=== PATIENT | female | born 1985 | race Caucasian/White ===

== ENCOUNTER 2018-05-13 15:38 | Emergency (ER) | payer OTHER ==
[2018-05-13] MEDS ORDERED: CEFOXITIN 1 GM/D5W RTU 1 GM/50 ML RTUPB IV ONE (15:59)
--- NOTE | 2018-05-13 16:00 | ER Document Report ---
ED Medical Screen (RME) - General Chief Complaint: Cat Bite Stated Complaint: CAT BITE Time Seen by Provider: 05/13/18 15:50 TRAVEL OUTSIDE OF THE [place] IN LAST 30 DAYS: No - HPI Notes: 05/13/18 15:59cat bite to the right hand greater than 24 hours - Related Data Allergies/Adverse Reactions: No Known Allergies Allergy (Unverified 07/06/15 13:41) Past Medical History - Social History Chew tobacco use (# tins/day): No Frequency of alcohol use: None Drug Abuse: None - Past Medical History Cardiac Medical History: Denies: Hx Coronary Artery Disease, Hx Heart Attack, Hx Hypertension Pulmonary Medical History: Denies: Hx Asthma, Hx Bronchitis, Hx COPD, Hx Pneumonia Neurological Medical History: Denies: Hx Cerebrovascular Accident, Hx Seizures Renal/ Medical History: Denies: Hx Peritoneal Dialysis Musculoskeltal Medical History: Denies Hx Arthritis - Immunizations Hx Diphtheria, Pertussis, Tetanus Vaccination: No Review of Systems - Review of Systems Constitutional: Other - cat bite Physical Exam - Vital signs Vitals: Temp Pulse Resp BP Pulse Ox 97.9 F 103 H 16 141/82 H 99 05/13/18 15:42 05/13/18 15:42 05/13/18 15:42 05/13/18 15:42 05/13/18 15:42 - Respiratory Respiratory status: No respiratory distress Chest status: Nontender Breath sounds: Normal Chest palpation: Normal - Extremities General upper extremity: Other - Decreased range of motion of the right and due to pain. Patient does have induration on the dorsum at the base of the third and fourth digit Course - Vital Signs Vital signs: Temp Pulse Resp BP Pulse Ox 97.9 F 103 H 16 141/82 H 99 05/13/18 15:42 05/13/18 15:42 05/13/18 15:42 05/13/18 15:42 05/13/18 15:42
--- NOTE | 2018-05-13 16:52 | RADIOLOGY REPORT (SQ) ---
EXAM DESCRIPTION: HAND RIGHT 3 VIEWS COMPLETED DATE/TIME: 05/13/2018 4:25 pm REASON FOR STUDY: cat bite mid by CT yesterday, diffuse hand soft tissue swelling over the thenar e minence COMPARISON: None. EXAM PARAMETERS: NUMBER OF VIEWS: Three views. TECHNIQUE: AP, lateral and oblique radiographic images acquired of the right hand. LIMITATIONS: None. FINDINGS: MINERALIZATION: Normal. BONES: No acute fracture or dislocation. No worrisome bone lesions. JOINTS: No effusions. SOFT TISSUES: Diffuse thenar eminence soft tissue swelling. No foreign body. No soft tissue gas. OTHER: No other significant finding. IMPRESSION: Diffuse seen are eminence soft tissue swelling. No soft tissue gas or radiopaque foreig n body. No bony puncture wound from cat bite TECHNICAL DOCUMENTATION: JOB ID: [id number] [employer]- All Rights Reserved Reading location - IP/workstation name: [email or web address]
[2018-05-13] MEDS ORDERED: NORMAL SALINE 1000 ML 1,000 ML IV ONE (16:55)
[2018-05-13 16:57] LABS: ABSOLUTE BASOPHILS # (AUTO) 0.1 10^3/uL (0.0-0.2); ABSOLUTE EOSINOPHILS # (AUTO) 0.1 10^3/uL (0.0-0.6); ABSOLUTE LYMPHOCYTES (AUTO) 3.1 10^3/uL (0.5-4.7); ABSOLUTE MONOCYTES (AUTO) 0.5 10^3/uL (0.1-1.4); ABSOLUTE NEUT (AUTO) 5.9 10^3/uL (1.7-8.2); BASOPHILS % (AUTO) 0.8 % (0-2); EOSINOPHILS % (AUTO) 1.1 % (0-6); HEMATOCRIT 39.3 % (36.0-47.0); HEMOGLOBIN 13.1 g/dL (12.0-15.5); LYMPHOCYTES % (AUTO) 31.8 % (13-45); MEAN CORPUSCULAR HEMOGLOBIN 30.4 pg (27.0-33.4); MEAN CORPUSCULAR HGB CONC 33.2 g/dL (32.0-36.0); MEAN CORPUSCULAR VOLUME 92 fl (80-97); MONOCYTES % (AUTO) 5.2 % (3-13); PLATELET COUNT 335 10^3/uL (150-450); RED CELL DISTRIBUTION WIDTH 13.4 % (11.5-14.0); SEGMENTED NEUTROPHILS % (AUTO) 61.1 % (42-78); TOTAL CELLS COUNTED % (AUTO) 100 %; WHITE BLOOD COUNT 9.6 10^3/uL (4.0-10.5)
[2018-05-13 17:19] LABS: ANION GAP 15 (5-19); BLOOD UREA NITROGEN 10 mg/dL (7-20); CALCIUM 9.9 mg/dL (8.4-10.2); CARBON DIOXIDE 24 mmol/L (22-30); CHLORIDE 106 mmol/L (98-107); GLUCOSE 85 mg/dL (75-110); POTASSIUM 4.3 mmol/L (3.6-5.0); SODIUM 144.9 mmol/L (137-145)
[2018-05-13] MEDS ORDERED: AMOXICILLIN TR/POT CLAVULANATE 500-125 MG TAB PO ONE (17:28)
--- NOTE | 2018-05-13 17:31 | ER Document Report ---
ED General - General Chief Complaint: Cat Bite Stated Complaint: CAT BITE Time Seen by Provider: 05/13/18 15:50 TRAVEL OUTSIDE OF THE [place] IN LAST 30 DAYS: No - HPI Patient complains to provider of: Bite right hand Notes: Patient states dog and cat were fighting when she was bit by her cat on the right middle finger now is having some redness swelling the base of the middle finger dorsum of the hand. Patient states she is having some painful range of motion as well as no fevers no chills no nausea no vomiting patient has not been placed on any antibiotics tetanus is up-to-date. - Related Data Allergies/Adverse Reactions: No Known Allergies Allergy (Unverified 07/06/15 13:41) Past Medical History - Social History Smoking Status: Never Smoker Chew tobacco use (# tins/day): No Frequency of alcohol use: None Drug Abuse: None Family History: Reviewed & Not Pertinent Patient has suicidal ideation: No Patient has homicidal ideation: No - Past Medical History Cardiac Medical History: Denies: Hx Coronary Artery Disease, Hx Heart Attack, Hx Hypertension Pulmonary Medical History: Denies: Hx Asthma, Hx Bronchitis, Hx COPD, Hx Pneumonia Neurological Medical History: Denies: Hx Cerebrovascular Accident, Hx Seizures Renal/ Medical History: Denies: Hx Peritoneal Dialysis Musculoskeletal Medical History: Denies Hx Arthritis - Immunizations Hx Diphtheria, Pertussis, Tetanus Vaccination: No Review of Systems - Review of Systems Constitutional: No symptoms reported EENT: No symptoms reported Cardiovascular: No symptoms reported Respiratory: No symptoms reported Gastrointestinal: No symptoms reported Genitourinary: No symptoms reported Female Genitourinary: No symptoms reported Musculoskeletal: Other - Bite to the hand Skin: No symptoms reported Hematologic/Lymphatic: No symptoms reported Neurological/Psychological: No symptoms reported -: Yes All other systems reviewed and negative Physical Exam - Vital signs Vitals: Temp Pulse Resp BP Pulse Ox 97.9 F 103 H 16 141/82 H 99 05/13/18 15:42 05/13/18 15:42 05/13/18 15:42 05/13/18 15:42 05/13/18 15:42 Interpretation: Normal - General General appearance: Appears well, Alert - HEENT Head: Normocephalic, Atraumatic Eyes: Normal Pupils: PERRL - Respiratory Respiratory status: No respiratory distress Chest status: Nontender Breath sounds: Normal Chest palpation: Normal - Cardiovascular Rhythm: Regular Heart sounds: Normal auscultation Murmur: No - Abdominal Inspection: Normal Distension: No distension Bowel sounds: Normal Tenderness: Nontender Organomegaly: No organomegaly - Back Back: Normal, Nontender - Extremities General upper extremity: Other - Patient with 2 puncture wounds at the PIP joint in the middle finger with some swelling there is no erythema of the finger minimal range of motion with passive X extension of the middle finger. Patient does have a small cut to the base of the thumb and palmar side is covered with superglue at this time there is no erythema or signs of infection patient does have a large area of erythema on the dorsum of the hand at the base of the second third and fourth digits no signs of obvious abscess at this time. Right hand unafected. No: Normal inspection General lower extremity: Normal inspection, Nontender, Normal color, Normal ROM , Normal temperature, Normal weight bearing. No: Chloe's sign - Neurological Neuro grossly intact: Yes Cognition: Normal Orientation: AAOx4 [place] Coma Scale Eye Opening: Spontaneous [place] Coma Scale Verbal: Oriented [place] Coma Scale Motor: Obeys Commands [place] Coma Scale Total: 15 Speech: Normal Motor strength normal: LUE, RUE, LLE, RLE Sensory: Normal - Psychological Associated symptoms: Normal affect, Normal mood - Skin Skin Temperature: Warm Skin Moisture: Dry Skin Color: Normal Course - Re-evaluation Re-evalutation: 05/13/18 20:46 Discussed with hand surgeon liquor commissioner this time recommends a trial of antibiotics to follow-up and return to the ER if symptoms are worsening. Patient states understanding laboratory studies show no signs significant infection patient was given a dose of cefoxitin IV will and a dose orally of Augmentin. Patient agrees with this plan will be discharged home - Vital Signs Vital signs: Temp Pulse Resp BP Pulse Ox 98.6 F 82 16 136/88 H 99 05/13/18 17:54 05/13/18 17:54 05/13/18 17:54 05/13/18 17:54 05/13/18 17:54 - Laboratory Result Diagrams: 05/13/18 16:20 05/13/18 16:20 Discharge - Discharge Clinical Impression: Cat bite of right hand Qualifiers: Encounter type: initial encounter Qualified Code(s): S61.451A - Open bite of right hand, initial encounter Condition: Good Disposition: HOME, SELF-CARE Instructions: Animal Bites ([facility]) Additional Instructions: I discussed her case with her hand surgeon on-call please take antibiotics as prescribed follow-up with his office. Return to ER symptoms worsen. Take medications as prescribed recommend Tylenol Motrin for any pain. If you feel like her symptoms are worsening or you develop a fever would recommend reevaluation here in the ER. Prescriptions: Amox Tr/Potassium Clavulanate [Augmentin 875-125 Tablet] 1 tab PO BID 10 Days tablet Ondansetron [Zofran Odt] 4 mg PO Q6 PRN #30 tab.rapdis PRN Reason: For Nausea/Vomiting Forms: Return to Work Referrals: JAMESON BASS DO [ACTIVE STAFF] - Follow up as needed (Call Monday for appointment)
[2018-05-13 17:56] VITALS: BP 136/88
== END 2018-05-13 17:54 | disposition home or self-care (01) ==
LOC: ER 15:38
DX: S61.252A Open bite of right middle finger without damage to nail, initial encounter (principal); S61.051A Open bite of right thumb without damage to nail, initial encounter; W55.01XA Bitten by cat, initial encounter; Y93.K9 Activity, other involving animal care
CPT/HCPCS: 99284; 96365; 36415; 87040; 85025; 80048; 73130; J0694; J7030

== ENCOUNTER 2018-05-15 18:22 | Emergency (ER) | payer OTHER ==
--- NOTE | 2018-05-15 20:07 | ER Document Report ---
ED Suture/Wound Recheck - General Chief Complaint: Wound Recheck Stated Complaint: CAT BITE Time Seen by Provider: 05/15/18 19:57 Mode of Arrival: Ambulatory Information source: Patient Notes: 82-year-old female presents to ED for complaint of concerned that her hand was still swollen and that the provider had told her if it look like it was swollen anymore than before that she needed to return to the ED. She states there is no warmth today and it does still hurt and feel tight. She states she is taking her antibiotics as prescribed. She states she has not had any fevers any drainage from the site. She states she has been taking ibuprofen as instructed. She states she has been back to work until tonight when she was came back in to have it rechecked. She states she does not have a primary care doctor that is when she came back to the emergency room. TRAVEL OUTSIDE OF THE [place] IN LAST 30 DAYS: No - HPI Previous ED treatment: Cat bite Antibiotics given previously: Prescription Quality of pain: Achy Severity: Mild Pain Level: 1 Symptoms since procedure: Pain, Swelling. denies: Drainage, Fever, Numbness, Red streaks, Redness Exacerbated by: Movement Relieved by: Denies - Related Data Allergies/Adverse Reactions: No Known Allergies Allergy (Verified 05/15/18 20:12) Past Medical History - General Information source: Patient - Social History Smoking Status: Never Smoker Cigarette use (# per day): No Chew tobacco use (# tins/day): No Smoking Education Provided: No Frequency of alcohol use: None Drug Abuse: None Lives with: Family Family History: Reviewed & Not Pertinent Patient has suicidal ideation: No Patient has homicidal ideation: No - Past Medical History Cardiac Medical History: Reports: None Pulmonary Medical History: Reports: None EENT Medical History: Reports: None Neurological Medical History: Reports: None Endocrine Medical History: Reports: None Renal/ Medical History: Reports: None Malignancy Medical History: Reports: None GI Medical History: Reports: None Musculoskeletal Medical History: Reports None Skin Medical History: Reports None Psychiatric Medical History: Reports: None Traumatic Medical History: Reports: None Infectious Medical History: Reports: None Surgical Hx: Negative - Immunizations Hx Diphtheria, Pertussis, Tetanus Vaccination: No Review of Systems - Review of Systems Constitutional: No symptoms reported EENT: No symptoms reported Cardiovascular: No symptoms reported Respiratory: No symptoms reported Gastrointestinal: No symptoms reported Genitourinary: No symptoms reported Female Genitourinary: No symptoms reported Musculoskeletal: No symptoms reported Skin: Other - Mild ecchymosis to the right hand. No redness site cool to the touch mildly edematous Hematologic/Lymphatic: No symptoms reported Neurological/Psychological: No symptoms reported -: Yes All other systems reviewed and negative Physical Exam - Vital signs Vitals: Temp Pulse Resp BP Pulse Ox 98.4 F 90 14 126/86 H 100 05/15/18 19:39 05/15/18 19:39 05/15/18 19:39 05/15/18 19:39 05/15/18 19:39 Interpretation: Normal - General General appearance: Appears well, Alert - HEENT Head: Normocephalic, Atraumatic Eyes: Normal Pupils: PERRL - Respiratory Respiratory status: No respiratory distress Chest status: Nontender Breath sounds: Normal Chest palpation: Normal - Cardiovascular Rhythm: Regular Heart sounds: Normal auscultation Murmur: No - Abdominal Inspection: Normal Distension: No distension Bowel sounds: Normal Tenderness: Nontender Organomegaly: No organomegaly - Back Back: Normal, Nontender - Extremities General upper extremity: Normal ROM, Normal temperature General lower extremity: Normal inspection, Nontender, Normal color, Normal ROM , Normal temperature, Normal weight bearing. No: Chloe's sign Hand: Tender, Ecchymosis, Swelling. No: Abrasion, Deformity, Dislocation, Instability, Laceration, Nail injury, No evidence of human bite, No evidence of FB, Tendon deficit - Neurological Neuro grossly intact: Yes Cognition: Normal Orientation: AAOx4 [place] Coma Scale Eye Opening: Spontaneous [place] Coma Scale Verbal: Oriented [place] Coma Scale Motor: Obeys Commands [place] Coma Scale Total: 15 Speech: Normal Motor strength normal: LUE, RUE, LLE, RLE Sensory: Normal - Psychological Associated symptoms: Normal affect, Normal mood - Skin Skin Temperature: Warm Skin Moisture: Dry Skin Color: Normal, Ecchymosis - right hand Location of irregularity: Extremities - Right hand Character of irregularity: negative: Erythematous Irregularity with: Swelling, Tenderness. negative: Warmth Course - Vital Signs Vital signs: Temp Pulse Resp BP Pulse Ox 98.0 F 82 17 130/86 H 99 05/15/18 20:10 05/15/18 20:10 05/15/18 20:10 05/15/18 20:10 05/15/18 20:10 Discharge - Discharge Clinical Impression: Cat bite recheck Condition: Stable Disposition: HOME, SELF-CARE Instructions: Family Physicians / Practices Additional Instructions: Animal Bites Animal bites are often heavily contaminated with bacteria. In spite of thorough cleansing and proper treatment, these wounds frequently become infected. Bite wounds of the hands are especially prone to complications. Bites are dressed, if possible. Large wounds may require suturing after internal cleansing. Because of infection risk, some large wounds must remain unstitched. Your doctor is trained to advise you on the best treatment for your bite. Call the doctor at once if the wound becomes red, swollen, warm, increasingly painful, or if it begins to drain. Danger signs also include red streaks up the involved extremity, swollen glands in the groin or under the arm , or fever and chills. The risk of rabies from domestic animals is very low. Bats, sick animals, and wild animals may expose you to rabies. The physician, or the health department, will inform you if you will need to receive the rabies vaccine. Epsom Salt Soaks Soak the wound area in a container of warm epsom salt water. If you can't get the wound area into a bucket or adan, use a folded towel soaked in the epsom salt solution and apply to the area. Use clean hot tap water (about the temperature of a very warm bath), mixing in about one (1) teaspoon for every pint of water. Two gallon --> 16 teaspoons Epsom Salts One gallon --> 8 teaspoons Epsom Salts Two quarts --> 4 teaspoons Epsom Salts One quart --> 2 teaspoons Epsom Salts Soak the wound for about 20 minutes while gently moving it around in the water. Do this when the wound feels tight or for pain. You do not have to do a certain time number times a day just this can help you with discomfort to the hand. Elevate the Injury Because of the nature of your injury, elevation will be helpful to reduce swelling. This also reduces infection risk in wounds. Keep the injury up above the level of your heart for at least the next 48 hours (or longer if the physician recommends it). Continue taking your Augmentin as prescribed. FOLLOW-UP CARE: If you have been referred to a physician for follow-up care, call the physician s office for an appointment as you were instructed or within the next two days. If you experience worsening or a significant change in your symptoms, notify the physician immediately or return to the Emergency Department at any time for re-evaluation. Forms: Elevated Blood Pressure, Return to Work
[2018-05-15 20:11] VITALS: BP 130/86
== END 2018-05-15 20:12 | disposition home or self-care (01) ==
LOC: ER 18:22
DX: T14.8XXD Other injury of unspecified body region, subsequent encounter (principal); W55.01XD Bitten by cat, subsequent encounter; M79.89 Other specified soft tissue disorders
CPT/HCPCS: 99282